=== PATIENT | female | born 1930 | race Caucasian/White ===

== ENCOUNTER 2018-02-17 09:49 | Outpatient (CLI) | payer OTHER ==
[~2018-02-17 09:49] MED LIST: CRESTOR10 MG; TRICOR145 MG; ZIAC 2.5-6.251 EACH
== END 2018-02-17 09:57 | disposition home or self-care (01) ==
LOC: RAD 09:49
DX: E04.1 Nontoxic single thyroid nodule (principal); D86.0 Sarcoidosis of lung; J45.20 Mild intermittent asthma, uncomplicated

== ENCOUNTER 2018-02-24 09:57 | Outpatient (CLI) | payer OTHER | END 2018-02-24 10:01 | disposition home or self-care (01) | LOC: NUCLEAR 09:57 | DX: I11.9 Hypertensive heart disease without heart failure (principal); R00.2 Palpitations ==

== ENCOUNTER 2018-05-01 07:15 | Outpatient (CLI) | payer OTHER | END 2018-05-01 07:17 | disposition home or self-care (01) | LOC: RAD 07:15 | DX: I15.8 Other secondary hypertension (principal); I10 Essential (primary) hypertension ==

== ENCOUNTER 2018-10-02 15:47 | Outpatient (CLI) | payer OTHER | END 2018-10-02 15:49 | disposition home or self-care (01) | LOC: RAD 15:47 | DX: M54.5 Low back pain (principal) ==

== ENCOUNTER 2018-11-12 11:51 | Outpatient (CLI) | payer OTHER | END 2018-11-12 16:38 | disposition home or self-care (01) | LOC: TOM 11:51 | DX: M54.5 Low back pain (principal) ==

== ENCOUNTER 2018-11-13 11:36 | Outpatient (CLI) | payer OTHER | END 2018-11-13 15:00 | disposition home or self-care (01) | LOC: LAB 11:36 | DX: J11.1 Influenza due to unidentified influenza virus with other respiratory manifestations (principal) ==

== ENCOUNTER 2019-01-09 08:11 | Outpatient (CLI) | payer OTHER | END 2019-01-09 09:07 | disposition home or self-care (01) | LOC: TOM 08:11 | DX: R10.9 Unspecified abdominal pain (principal) | CPT/HCPCS: 74177; Q9965 ==

== ENCOUNTER 2019-03-05 15:56 | Outpatient (CLI) | payer OTHER | END 2019-03-05 16:01 | disposition home or self-care (01) | LOC: SONOGRAMA 15:56 | DX: E21.2 Other hyperparathyroidism (principal); E04.2 Nontoxic multinodular goiter ==

== ENCOUNTER 2019-06-08 15:17 | Outpatient (CLI) | payer OTHER | END 2019-06-08 15:39 | disposition home or self-care (01) | LOC: RAD 15:17 | DX: M54.2 Cervicalgia (principal) ==

== ENCOUNTER 2019-07-27 10:04 | Outpatient (CLI) | payer OTHER | END 2019-07-27 14:22 | disposition home or self-care (01) | LOC: NUCLEAR 10:04 | DX: I87.2 Venous insufficiency (chronic) (peripheral) (principal); I73.9 Peripheral vascular disease, unspecified; M81.0 Age-related osteoporosis without current pathological fracture ==

== ENCOUNTER 2019-07-27 12:26 | Outpatient (CLI) | payer OTHER | END 2019-07-27 12:30 | disposition home or self-care (01) | LOC: RAD 12:26 | DX: M54.5 Low back pain (principal) ==

== ENCOUNTER → 2019-07-29 | Outpatient (CLI) | payer OTHER | END | disposition home or self-care (01) | LOC: NUCLEAR 09:39 | DX: I70.218 Atherosclerosis of native arteries of extremities with intermittent claudication, other extremity (principal); I73.9 Peripheral vascular disease, unspecified ==

== ENCOUNTER 2019-12-29 09:27 | Outpatient (CLI) | payer OTHER ==
[2019-12-30] MEDS ORDERED: LOPERAMIDE2 MG (12:17)
[2019-12-30] MEDS ORDERED: ALENDRONATE SOD35 MG (12:17)
[2019-12-30] MEDS ORDERED: FENOFIBRIC ACI135 MG (12:18)
== END 2019-12-29 12:18 | disposition home or self-care (01) ==
LOC: TOM 09:27
DX: R19.5 Other fecal abnormalities (principal)

== ENCOUNTER 2019-12-29 16:43 | Inpatient (IN) | payer OTHER ==
[~2019-12-29] VITALS: Ht 154.9 cm; Wt 54.4 kg
[2019-12-30] MEDS ORDERED: ALENDRONATE SOD35 MG (12:17)
[2019-12-30] MEDS ORDERED: LOPERAMIDE2 MG (12:17)
[2019-12-30] MEDS ORDERED: FENOFIBRIC ACI135 MG (12:18)
[2020-01-02] MEDS ORDERED: FLAGYL500MG PO ×2 (09:08)
[2020-01-02] MEDS ORDERED: INTESTINEX680 M1 PO ×2 (09:09)
== END 2020-01-02 11:22 | disposition home or self-care (01) | DRG 392 ==
LOC: ER 16:43 → SURH 19:03
PROVIDERS: ADMIT Internal Medicine
PROC: 8E0ZXY6 Isolation (ICD-10-PCS; principal; 2019-12-29)
DX: A09 Infectious gastroenteritis and colitis, unspecified (principal); K92.1 Melena; R31.29 Other microscopic hematuria; K80.80 Other cholelithiasis without obstruction

== ENCOUNTER 2020-11-08 15:00 | Outpatient (CLI) | payer OTHER ==
[~2020-11-08 15:00] MED LIST changes: +ALENDRONATE SOD35 MG; +FENOFIBRIC ACI135 MG; +FLAGYL500MG PO; +INTESTINEX680 M1 PO; +LOPERAMIDE2 MG
== END 2020-11-08 15:55 | disposition home or self-care (01) ==
LOC: PPH VACUNA 15:00
PROVIDERS: ATTEND Emergency Medicine Pediatric Emergency Medicine
DX: Z23 Encounter for immunization (principal)

== ENCOUNTER → 2020-11-29 08:00 | Outpatient (CLI) | payer OTHER | END | disposition home or self-care (01) | LOC: PPH VACUNA 08:00 | PROVIDERS: ATTEND Emergency Medicine Pediatric Emergency Medicine | DX: Z23 Encounter for immunization (principal) ==

== ENCOUNTER → 2021-04-04 12:03 | Outpatient (CLI) | payer OTHER | END | disposition home or self-care (01) | LOC: LAB 12:03 | DX: E03.9 Hypothyroidism, unspecified (principal); G72.9 Myopathy, unspecified; M15.1 Heberden's nodes (with arthropathy); D64.9 Anemia, unspecified; G70.00 Myasthenia gravis without (acute) exacerbation ==

== ENCOUNTER 2021-06-20 08:00 | Outpatient (CLI) | payer OTHER | END 2021-06-20 08:30 | disposition home or self-care (01) | LOC: PPH VACUNA 08:00 | DX: Z23 Encounter for immunization (principal) ==

== ENCOUNTER 2021-06-27 08:21 | Outpatient (CLI) | payer OTHER | END 2021-06-27 08:26 | disposition home or self-care (01) | LOC: NUCLEAR 08:21 | PROVIDERS: ATTEND Internal Medicine | DX: I87.2 Venous insufficiency (chronic) (peripheral) (principal) ==

== ENCOUNTER 2021-06-27 09:08 | Outpatient (CLI) | payer OTHER | END 2021-06-27 09:09 | disposition home or self-care (01) | LOC: SONOGRAMA 09:08 | PROVIDERS: ATTEND Internal Medicine | DX: Q61.01 Congenital single renal cyst (principal); K80.80 Other cholelithiasis without obstruction; K76.0 Fatty (change of) liver, not elsewhere classified; Z13.818 Encounter for screening for other digestive system disorders ==

== ENCOUNTER 2021-10-05 09:16 | Outpatient (CLI) | payer OTHER | END 2021-10-05 09:20 | disposition home or self-care (01) | LOC: NUCLEAR 09:16 | PROVIDERS: ATTEND Internal Medicine | DX: R00.1 Bradycardia, unspecified (principal) ==